=== PATIENT | male | born 1940 | race Caucasian/White ===

== ENCOUNTER 2024-03-10 21:40 | Emergency (ER) | payer MEDICARE, SELFPAY ==
[2024-03-10 21:42] VITALS: BP 153/73
--- NOTE | 2024-03-10 22:58 | ED.GENMED ---
History of Present Illness
General
Chief Complaint: Skin Surface Trauma
Source: patient
Exam Limitations: none
Time Seen by Provider: 03/10/24 22:41
Nursing documentation reviewed up to this point in time: agreed with
Travel History
Have you had any contact with someone who has COVID-19?: No
Do you have any symptoms of coronavirus? Fever > 100 degrees, chills, cough, shortness of breath, sore throat, loss of taste or smell, muscle aches, or headache?: No
History of Present Illness
History of Present Illness:
Patient is an 83-year-old male who presents to the ER for evaluation. Patient believes he may have scratched his left ankle prior to arrival and wound was bleeding for 5 to 10 minutes however with pressure it stopped on its own and has not bled
since. He is on aspirin but no other blood thinners.
Past History
Past History
ED Past Medical History: Arrthythmia (Atrial fib), GERD, Hypercholesterolemia and Other (Diverticulosis, hiatal hernia, occasionally bleeding hemorrhoids, prostatic hypertrophy, osteoarthritis, degenerative spine disease, arthritis of the right
thumb, cataracts, skin cancer); Negative HTN
ED Past Surgical History: Tonsilectomy and Other (Inguinal hernia repair, wisdom teeth extraction, removal of skin cancer on the face and chest)
Social History
Tobacco: Former smoker
Alcohol: Occasional
Personal: Single
Living: with roommate
Employment: Retired
Family History
Family History: Other (Noncontributory)
Review of Systems
Review of Systems
Allergies reviewed?: Yes
All Other Systems: ROS reviewed and negative except as documented in HPI and ROS
Constitutional: Reports no symptoms
Musculoskeletal: Reports other (bleeding wound to left ankle now resolved )
Skin: Reports other (see above )
Psychiatric: Reports no symptoms
Phy Exam
General Physical Exam
General Presentation: no apparent distress
General age: appears stated age
General Skin: warm and dry
General Habitus: normal
General Mental: alert
General Hydration: appears well hydrated
Neurological Exam
Neurological Exam: alert and oriented x3
Musculoskeletal Exam
Musculoskeletal Exam: other (Patient with scattered small varicose veins to bilateral ankles left ankle with very small scab likely the site of bleeding but no further bleeding now.)
Skin Exam
Skin Exam: normal color and warm/dry
Psychiatric Exam
Psychiatric Exam: normal mood/affect
Course
Vital Signs
Initial and Last Documented VS:
Initial Vital Signs
Temp Pulse Resp BP Pulse Ox
97.8 F 81 18 153/73 96
03/10/24 21:42 03/10/24 21:42 03/10/24 21:42 03/10/24 21:42 03/10/24 21:42
Last Documented Vital Signs
Temp Pulse Resp BP Pulse Ox
97.8 F 81 18 153/73 96
03/10/24 21:42 03/10/24 21:42 03/10/24 21:42 03/10/24 21:42 03/10/24 21:42
MDM/Problems Addressed
Differential Diagnosis Includes:
Not limited to bleeding varicose vein, abrasion
MDM/Problems Addressed:
Patient is an 83-year-old male who believes he scratched his leg and sustained a wound that was bleeding prior to arrival. He has multiple small varicose veins that he likely scratched a vein which was bleeding however bleeding has since resolved.
Very small minute abrasion no further bleeding since will wrap with 4 x 4's and Zelal[place] so that he does not irritated throughout the night he is on aspirin only discussed to return if any worsening of symptoms. I did instruct him however on applying
pressure if bleeding starts/develops again
*Critical Care Note
Total Time (30-74mins, 75-104mins- exclusive of procedures): Not Applicable
ED Attending Note
-
Portions of this chart may have been created with voice recognition software.� Occasional wrong word or��sound alike� substitutions may have occurred due to the inherent limitations of voice recognition software.
Discharge Plan
Departure
Patient Disposition: Home (Routine Discharge)
Date of Disposition: 03/10/24
Time of Disposition: 23:04
Patient with high blood pressure during this ER visit?: Yes
Condition: Fair
Covid-19: Not Applicable
Discharge Problem:
Bleeding from varicose vein
Instructions: Wound Care (DC)
Prescriptions:
No Action
diltiazem HCl 120 MG capsule,ext.rel 24h degradable
120 mg PO HS
ibuprofen [Advil] 200 MG tablet
400 mg PO Q8H PRN (Reason: pain)
Patient Comments:
testicular, groin,back pain-
1-2 tabs
Citracel
1 cap PO DAILYPRN PRN (Reason: constipation)
Lactobacillus acidophilus [Probiotic] 1 EACH capsule
1 ea PO 1800
aspirin 325 MG tablet
325 mg PO DAILY Qty: 0 0RF
atorvastatin 10 MG tablet
5 mg PO HS
multivitamin [One-A-Day Essential] 1 EACH tablet
1 ea PO NOON
polyethylene glycol 3350 17 GRAMS powder in packet
17 grams PO HS
lorazepam 0.5 MG tablet
0.5 mg PO HSPRN PRN (Reason: anxiety)
flecainide 100 MG tablet
100 mg PO Q12
dutasteride 0.5 MG capsule
0.5 mg PO HS
tamsulosin 0.4 MG capsule
0.4 mg PO HS
triamcinolone acetonide 1 APPLIC cream
1 applic topical DAILY
methotrexate sodium 2.5 MG tablet
2.5 mg PO MOTUWETH
folic acid 1 MG tablet
1 mg PO SUFRSA
levofloxacin [Levaquin] 750 MG tablet
750 mg PO DAILY Qty: 5 0RF
Activity Restrictions/Additional Instructions:
It is likely that you scratched one of your varicose veins which bled. Keep clean and dry for 24 hours after 24 hours gently wash with soap and water pat dry apply small layer of antibiotic ointment to the area. Apply pressure if needed if
bleeding develops. Return if any worsening of symptoms
Discharge Date and Time
Print Language: KENYAN
== END 2024-03-10 23:27 | disposition home or self-care (01) ==
LOC: EMR 21:40
PROVIDERS: EMERGENCY PHYSICIAN Emergency Medicine; FAMILY PHYSICIAN Family Medicine
DX: I83.892 Varicose veins of left lower extremity with other complications (principal); S80.812A Abrasion, left lower leg, initial encounter; X58.XXXA Exposure to other specified factors, initial encounter; I48.91 Unspecified atrial fibrillation; E78.00 Pure hypercholesterolemia, unspecified; K21.9 Gastro-esophageal reflux disease without esophagitis; K57.90 Diverticulosis of intestine, part unspecified, without perforation or abscess without bleeding; M19.041 Primary osteoarthritis, right hand; N40.0 Benign prostatic hyperplasia without lower urinary tract symptoms; Z79.82 Long term (current) use of aspirin; Z87.891 Personal history of nicotine dependence; Z85.828 Personal history of other malignant neoplasm of skin; Z88.0 Allergy status to penicillin; Z91.048 Other nonmedicinal substance allergy status
CPT/HCPCS: 99282

== ENCOUNTER 2024-06-20 13:01 | Emergency (ER) | payer MEDICARE, SELFPAY ==
[2024-06-20 13:03] VITALS: BP 172/98
--- NOTE | 2024-06-20 13:50 | ED.GENMED ---
History of Present Illness
General
Chief Complaint: Skin Problem
Time Seen by Provider: 06/20/24 13:31
History of Present Illness
History of Present Illness:
83-year-old male presents to the emergency department for ration of bleeding in the left scrotum. Bleeding is currently was. Does not take anticoagulants.
Past History
Past History
ED Past Medical History: Arrthythmia (Atrial fib), GERD, Hypercholesterolemia and Other (Diverticulosis, hiatal hernia, occasionally bleeding hemorrhoids, prostatic hypertrophy, osteoarthritis, degenerative spine disease, arthritis of the right
thumb, cataracts, skin cancer); Negative HTN
ED Past Surgical History: Tonsilectomy and Other (Inguinal hernia repair, wisdom teeth extraction, removal of skin cancer on the face and chest)
Social History
Tobacco: Former smoker
Alcohol: Occasional
Personal: Single
Living: with roommate
Employment: Retired
Family History
Family History: Other (Noncontributory)
Review of Systems
Review of Systems
Allergies reviewed?: Yes
All Other Systems: ROS reviewed and negative except as documented in HPI and ROS
Phy Exam
Physical Exam
Physical Exam:
GEN: Well appearing, NAD, WDWN
HEENT: Oral mucosa moist, no scleral icterus
Cardiac: Regular rate
Lung: No respiratory distress, no tachypnea
: Left scrotal varicosity with resolved bleeding
MSK: No gross deformity or injuries
Skin: Good color, no pallor or jaundice, no rashes
Neuro: AO x3, moves all extremities freely
Psych: Calm, cooperative
Course
Vital Signs
Initial and Last Documented VS:
Initial Vital Signs
Temp Pulse Resp BP Pulse Ox
98.9 F 106 18 172/98 95
06/20/24 13:03 06/20/24 13:03 06/20/24 13:03 06/20/24 13:03 06/20/24 13:03
Last Documented Vital Signs
Temp Pulse Resp BP Pulse Ox
98.9 F 106 18 172/98 95
06/20/24 13:03 06/20/24 13:03 06/20/24 13:03 06/20/24 13:03 06/20/24 13:03
MDM/Problems Addressed
MDM/Problems Addressed:
Topical skin glue applied for hemostasis
*Critical Care Note
Total Time (30-74mins, 75-104mins- exclusive of procedures): Not Applicable
ED Attending Note
-
Portions of this chart may have been created with voice recognition software.� Occasional wrong word or��sound alike� substitutions may have occurred due to the inherent limitations of voice recognition software.
Discharge Plan
Departure
Patient Disposition: Home (Routine Discharge)
Date of Disposition: 06/20/24
Time of Disposition: 14:15
Patient with high blood pressure during this ER visit?: No
Discharge Problem:
Bleeding from varicose vein
Instructions: Suture care - Skin Glue
Prescriptions:
No Action
diltiazem HCl 120 MG capsule,ext.rel 24h degradable
120 mg PO HS
ibuprofen [Advil] 200 MG tablet
400 mg PO Q8H PRN (Reason: pain)
Patient Comments:
testicular, groin,back pain-
1-2 tabs
Citracel
1 cap PO DAILYPRN PRN (Reason: constipation)
Lactobacillus acidophilus [Probiotic] 1 EACH capsule
1 ea PO 1800
aspirin 325 MG tablet
325 mg PO DAILY Qty: 0 0RF
atorvastatin 10 MG tablet
5 mg PO HS
multivitamin [One-A-Day Essential] 1 EACH tablet
1 ea PO NOON
polyethylene glycol 3350 17 GRAMS powder in packet
17 grams PO HS
lorazepam 0.5 MG tablet
0.5 mg PO HSPRN PRN (Reason: anxiety)
flecainide 100 MG tablet
100 mg PO Q12
dutasteride 0.5 MG capsule
0.5 mg PO HS
tamsulosin 0.4 MG capsule
0.4 mg PO HS
triamcinolone acetonide 1 APPLIC cream
1 applic topical DAILY
methotrexate sodium 2.5 MG tablet
2.5 mg PO MOTUWETH
folic acid 1 MG tablet
1 mg PO SUFRSA
levofloxacin [Levaquin] 750 MG tablet
750 mg PO DAILY Qty: 5 0RF
Referrals:
Vik Landa DO [Family Provider] -
Activity Restrictions/Additional Instructions:
You may shower, avoid scrubbing the wound
Interventions
Interventions:
*Risk Screen - Suicide Last Done: 06/20/24 13:03
*General Assessment Last Done: 06/20/24 13:03
*Neglect/Abuse Screening Last Done: 06/20/24 13:03
ED- Fall Risk Assessment Last Done: 06/20/24 14:26
*ED COVID-19 Vaccine History Last Done: 06/20/24 14:26
*Nursing Disposition Last Done: 06/20/24 14:26
ED-Skin Assessment Last Done: 06/20/24 14:26
Discharge Date and Time
Discharge Date/Time: 06/20/24 14:27
Print Language: FRISIAN
== END 2024-06-20 14:27 | disposition home or self-care (01) ==
LOC: EMR 13:01
PROVIDERS: EMERGENCY PHYSICIAN Emergency Medicine; FAMILY PHYSICIAN Family Medicine
DX: I86.1 Scrotal varices (principal); N50.1 Vascular disorders of male genital organs; Z87.891 Personal history of nicotine dependence
CPT/HCPCS: 99282

== ENCOUNTER 2025-08-04 14:16 | Emergency (ER) | payer MEDICARE, SELFPAY ==
[2025-08-04 14:18] VITALS: BP 144/80
--- NOTE | 2025-08-04 14:31 | ED.GENMED ---
History of Present Illness
General
Chief Complaint: Skin Problem
Source: patient and records
Exam Limitations: none
Time Seen by Provider: 08/04/25 14:21
History of Present Illness
History of Present Illness:
84yoM with a history of atrial fibrillation, hyperlipidemia, and GERD presenting for evaluation of bleeding. Patient was on the toilet today and noticed that he had spots of blood on his underwear. He thought he may be bleeding from his scrotum as
this has happened in the past and decided to come to the ED. No reported trauma. Patient changed his underwear about 1 hour prior to arrival and has not noticed any further bleeding. He denies any hematuria or hematochezia. He is otherwise
feeling well. His only blood thinner is aspirin which is currently on hold in anticipation of a cervical epidural injection next week. Patient was last seen in the ED in June 2024 for left scrotal bleeding and skin glue was placed at that time.
Past History
Past History
ED Past Medical History: Arrthythmia (Atrial fib), GERD, Hypercholesterolemia and Other (Diverticulosis, hiatal hernia, occasionally bleeding hemorrhoids, prostatic hypertrophy, osteoarthritis, degenerative spine disease, arthritis of the right
thumb, cataracts, skin cancer); Negative HTN
ED Past Surgical History: Tonsilectomy and Other (Inguinal hernia repair, wisdom teeth extraction, removal of skin cancer on the face and chest)
Social History
Tobacco: Former smoker
Alcohol: Occasional
Personal: Single
Living: with roommate
Employment: Retired
Family History
Family History: Other (Noncontributory)
Phy Exam
General Physical Exam
General Presentation: well appearing and no apparent distress
General Skin: warm and dry
General Habitus: normal and elderly
General Mental: alert
ENT Exam
ENT Exam: normocephalic
Pulmonary Exam
Pulmonary Exam: no respiratory distress
Genitourinary Exam Male
Exam Male: other (Scrotal varicosities noted. No open wounds or bleeding noted. No blood on underwear. )
Neurological Exam
Neurological Exam: alert
Patterson Coma Scale
Eye Opening: Spontaneous
Verbal Response: Oriented
Motor Response: Obeys Commands
GCS Total Score: 15
Skin Exam
Skin Exam: normal color and warm/dry
Psychiatric Exam
Psychiatric Exam: normal mood/affect
Course
Vital Signs
Initial and Last Documented VS:
Initial Vital Signs
Temp Pulse Resp BP Pulse Ox
98.3 F 99 18 144/80 94
08/04/25 14:18 08/04/25 14:18 08/04/25 14:18 08/04/25 14:18 08/04/25 14:18
Last Documented Vital Signs
Temp Pulse Resp BP Pulse Ox
98 F 89 16 137/70 97
08/04/25 14:54 08/04/25 14:54 08/04/25 14:54 08/04/25 14:54 08/04/25 14:54
MDM/Problems Addressed
Differential Diagnosis Includes:
84yoM here for concern for scrotal bleeding after finding some blood in his underwear today. Scrotal varicosities noted without open wounds or bleeding. No blood noted on underwear. Patient stable for discharge. He was advised to return to the ER
with any issues or uncontrolled bleeding.
*Pulse Oximetry
SaO2: 94
Oxygen Mode of Delivery: Room air
Patient hypoxic: no
*Critical Care Note
Total Time (30-74mins, 75-104mins- exclusive of procedures): Not Applicable
ED Attending Note
-
Portions of this chart may have been created with voice recognition software.� Occasional wrong word or��sound alike� substitutions may have occurred due to the inherent limitations of voice recognition software.
Discharge Plan
Departure
Patient Disposition: Home (Routine Discharge)
Date of Disposition: 08/04/25
Time of Disposition: 14:52
Patient with high blood pressure during this ER visit?: Yes
Discharge Problem:
Blood in underwear
Instructions: Varicose Veins (DC)
Prescriptions:
No Action
diltiazem HCl 120 MG capsule,ext.rel 24h degradable
120 mg PO HS
ibuprofen [Advil] 200 MG tablet
400 mg PO Q8H PRN (Reason: pain)
Patient Comments:
testicular, groin,back pain-
1-2 tabs
Citracel
1 cap PO DAILYPRN PRN (Reason: constipation)
Lactobacillus acidophilus [Probiotic] 1 EACH capsule
1 ea PO 1800
aspirin 325 MG tablet
325 mg PO DAILY Qty: 0 0RF
atorvastatin 10 MG tablet
5 mg PO HS
multivitamin [One-A-Day Essential] 1 EACH tablet
1 ea PO NOON
polyethylene glycol 3350 17 GRAMS powder in packet
17 grams PO HS
lorazepam 0.5 MG tablet
0.5 mg PO HSPRN PRN (Reason: anxiety)
flecainide 100 MG tablet
100 mg PO Q12
dutasteride 0.5 MG capsule
0.5 mg PO HS
tamsulosin 0.4 MG capsule
0.4 mg PO HS
triamcinolone acetonide 1 APPLIC cream
1 applic topical DAILY
methotrexate sodium 2.5 MG tablet
2.5 mg PO MOTUWETH
folic acid 1 MG tablet
1 mg PO SUFRSA
levofloxacin [Levaquin] 750 MG tablet
750 mg PO DAILY Qty: 5 0RF
Referrals:
Vik Landa DO [Family Provider, Family Practice]
Activity Restrictions/Additional Instructions:
Return to the ER with any worsening symptoms or uncontrolled bleeding.
Interventions
Interventions:
*Risk Screen - Suicide Last Done: 08/04/25 14:18
*General Assessment Last Done: 08/04/25 14:18
*Neglect/Abuse Screening Last Done: 08/04/25 14:18
*ED- Fall Risk Assessment Last Done: 08/04/25 14:49
*ED COVID-19 Vaccine History Last Done: 08/04/25 14:48
*ED Influenza Vaccine History Last Done: 08/04/25 14:49
*Nursing Disposition Last Done: 08/04/25 15:11
ED-Skin Assessment Last Done: 08/04/25 14:52
Discharge Date and Time
Discharge Date/Time: 08/04/25 14:55
Print Language: SAMI
[2025-08-04 14:47] VITALS: BMI 23.8
[2025-08-04 14:54] VITALS: BP 137/70
== END 2025-08-04 14:55 | disposition home or self-care (01) ==
LOC: EMR 14:16
PROVIDERS: EMERGENCY PHYSICIAN Emergency Medicine; FAMILY PHYSICIAN Family Medicine
DX: I86.1 Scrotal varices (principal); E78.00 Pure hypercholesterolemia, unspecified; I48.91 Unspecified atrial fibrillation; N40.0 Benign prostatic hyperplasia without lower urinary tract symptoms; Z87.891 Personal history of nicotine dependence
CPT/HCPCS: 99282

== ENCOUNTER 2025-08-24 09:44 | Emergency (ER) | payer MEDICARE, SELFPAY ==
[2025-08-24 09:45] VITALS: BP 153/93
--- NOTE | 2025-08-24 10:44 | ED.GENMED ---
History of Present Illness
General
Chief Complaint: Skin Problem
Source: patient
Exam Limitations: none
Time Seen by Provider: 08/24/25 09:51
Nursing documentation reviewed up to this point in time: agreed with
History of Present Illness
History of Present Illness:
84-year-old male with a history of atrial fibrillation, hyperlipidemia, BPH presents with a small bump on his right buttock that he noticed a few days ago. It is very minimal and not really painful but he was not sure if there is an infection. He
wanted to come before it became bigger. He has no history of MRSA, fevers or chills, trouble moving his bowels. He is not diabetic.
Past History
Past History
ED Past Medical History: Arrthythmia (Atrial fib), GERD, Hypercholesterolemia and Other (Diverticulosis, hiatal hernia, occasionally bleeding hemorrhoids, prostatic hypertrophy, osteoarthritis, degenerative spine disease, arthritis of the right
thumb, cataracts, skin cancer); Negative HTN
ED Past Surgical History: Tonsilectomy and Other (Inguinal hernia repair, wisdom teeth extraction, removal of skin cancer on the face and chest)
Social History
Tobacco: Former smoker
Alcohol: Occasional
Personal: Single
Living: with roommate
Employment: Retired
Family History
Family History: Other (Noncontributory)
Review of Systems
Review of Systems
Allergies reviewed?: Yes
All Other Systems: Not applicable
Phy Exam
Physical Exam
Physical Exam:
GENERAL: Alert , in no apparent distress
EYE: pupils equal and reactive
NECK: Supple
ENT: o/p clr, mmm.
CARDIAC: Regular rate and rhythm .
LUNGS: Clear breath sounds bilaterally, no acute respiratory distress, no wheezes/rales/rhonchi
ABDOMEN: Soft, without focal tenderness, no r/g, no cvat, normal bowel sounds
NEUROLOGICAL: Alert and oriented, no focal neuro deficits
SKIN: Warm and dry, skin intact. 2 mm small pustule
Folliculitis, small pustule to the right medial buttock not near the anus approximately 2 mm
MUSCULOSKELETAL: No edema, well perfused. neg radha's sign
PSYCH: Normal and appropriate interaction.
Course
Orders/Labs/Results
Orders:
Orders
08/24/25 11:05
Wound Culture [Wound/Abscess/Other Culture] Urgent
JEREMY Source: Buttock
Specimen Description:
Date Specimen was Collected: 08/24/25
Time Specimen was Collected: 11:05
Vital Signs
Initial and Last Documented VS:
Initial Vital Signs
Temp Pulse Resp BP Pulse Ox
36.6 C 80 20 153/93 997
08/24/25 09:45 08/24/25 09:45 08/24/25 09:45 08/24/25 09:45 08/24/25 09:45
Last Documented Vital Signs
Temp Pulse Resp BP Pulse Ox
36.6 C 84 20 124/66 99
08/24/25 09:45 08/24/25 11:09 08/24/25 11:09 08/24/25 11:09 08/24/25 11:09
Procedures
Incision/Drainage/Joint Aspiration
Right Buttock:
Anethesia: 1% Lidocaine with Epi
Preparation: cleaned with Betadine
Type of procedure: incise
Nature of site: abscess
Description of abscess: less than 3cm
Loculations broken up: No
How much fluid was obtained?: scant amount
Fluid description: purulent
Treatment: left open for drainage
MDM/Problems Addressed
Differential Diagnosis Includes:
folliculitis, abscess, cellulitis
MDM/Problems Addressed:
84 y/o M
hld, af
here with pustule on L buttocks not near his anus
noticed a few ddays ago
no significant swelling or tenderness
no systemic symptoms
pustule is inferior buttocks, not near anus
itw as unroofed and swabbed for culture in case pt has to return
warm compresses for now
hold abx unless worsens, then doxy
but it was so small, localized therapy and I&D was probably adequate
*Pulse Oximetry
SaO2: 997
Oxygen Mode of Delivery: Room air
Patient hypoxic: no (99)
*Critical Care Note
Total Time (30-74mins, 75-104mins- exclusive of procedures): Not Applicable
ED Attending Note
-
Portions of this chart may have been created with voice recognition software.� Occasional wrong word or��sound alike� substitutions may have occurred due to the inherent limitations of voice recognition software.
Discharge Plan
Departure
Patient Disposition: Home (Routine Discharge)
Date of Disposition: 08/24/25
Time of Disposition: 10:46
Patient with high blood pressure during this ER visit?: Yes
Covid-19: Not Applicable
Discharge Problem:
Folliculitis
Instructions: Wound Care (DC)
Prescriptions:
New
doxycycline hyclate 100 mg capsule
100 mg PO BID Qty: 14 0RF
No Action
diltiazem HCl 120 MG capsule,ext.rel 24h degradable
120 mg PO HS
ibuprofen [Advil] 200 MG tablet
400 mg PO Q8H PRN (Reason: pain)
Patient Comments:
testicular, groin,back pain-
1-2 tabs
Citracel
1 cap PO DAILYPRN PRN (Reason: constipation)
Lactobacillus acidophilus [Probiotic] 1 EACH capsule
1 ea PO 1800
aspirin 325 MG tablet
325 mg PO DAILY Qty: 0 0RF
atorvastatin 10 MG tablet
5 mg PO HS
multivitamin [One-A-Day Essential] 1 EACH tablet
1 ea PO NOON
polyethylene glycol 3350 17 GRAMS powder in packet
17 grams PO HS
lorazepam 0.5 MG tablet
0.5 mg PO HSPRN PRN (Reason: anxiety)
flecainide 100 MG tablet
100 mg PO Q12
dutasteride 0.5 MG capsule
0.5 mg PO HS
tamsulosin 0.4 MG capsule
0.4 mg PO HS
triamcinolone acetonide 1 APPLIC cream
1 applic topical DAILY
methotrexate sodium 2.5 MG tablet
2.5 mg PO MOTUWETH
folic acid 1 MG tablet
1 mg PO SUFRSA
levofloxacin [Levaquin] 750 MG tablet
750 mg PO DAILY Qty: 5 0RF
Referrals:
Vik Landa DO [Family Provider, Family Practice] - Follow up in 2-3 days
Activity Restrictions/Additional Instructions:
The small pustule on your buttocks was drained. You should do warm soaks and either a bathtub or sitz bath's every few hours for about 10 minutes for a day or 2 to help heal it. If you notice any surrounding redness or warmth or swelling you can
take doxycycline 2 times a day for 7 days.
You do not need to start this antibiotic unless you are feeling like it is getting worse. If you get a fever or significant pain you should be seen in the emergency department
Interventions
Interventions:
*Risk Screen - Suicide Last Done: 08/24/25 09:45
*General Assessment Last Done: 08/24/25 09:45
*Neglect/Abuse Screening Last Done: 08/24/25 09:45
*Nursing Disposition Last Done: 08/24/25 11:09
ED-Skin Assessment Last Done: 08/24/25 10:40
Discharge Date and Time
Discharge Date/Time: 08/24/25 11:10
Print Language: SLOVENIAN
[2025-08-24 11:09] VITALS: BP 124/66
== END 2025-08-24 11:10 | disposition home or self-care (01) ==
LOC: EMR 09:44
PROVIDERS: EMERGENCY PHYSICIAN Emergency Medicine; FAMILY PHYSICIAN Family Medicine
DX: L73.9 Follicular disorder, unspecified (principal); I48.91 Unspecified atrial fibrillation; E78.00 Pure hypercholesterolemia, unspecified; N40.0 Benign prostatic hyperplasia without lower urinary tract symptoms; M19.90 Unspecified osteoarthritis, unspecified site; Z85.828 Personal history of other malignant neoplasm of skin; Z87.19 Personal history of other diseases of the digestive system; Z87.891 Personal history of nicotine dependence
CPT/HCPCS: 99282; 10060; 87070; 87205